=== PATIENT | male | born 1965 | race Caucasian/White ===

== ENCOUNTER 2020-07-02 18:34 | Outpatient (CLI) | payer BC ==
[~2020-07-02 18:34] MED LIST: LOSA1TAB15 PO
[2020-07-02 18:59] LABS: BASOPHILS # (AUTO) 0.1 K/uL (0.0-0.2); BASOPHILS % (AUTO) 0.7 % (0.0-2.0); EOSINOPHILS # (AUTO) 0.4 K/uL (0.0-0.4); EOSINOPHILS % (AUTO) 4.3 % (0.0-4.0); HEMATOCRIT 40.6 % (36-54); HEMOGLOBIN 13.5 g/dL (14.0-18.0); LYMPHOCYTES # (AUTO) 3.6 K/uL (1.0-5.5); MEAN CORPUSCULAR HEMOGLOBIN 30 pg (27-31); MEAN CORPUSCULAR HGB CONC 33 % (32-36); MEAN CORPUSCULAR VOLUME 90 fL (79.0-98.0); MONOCYTES # (AUTO) 0.6 K/uL (0.0-1.0); MONOCYTES % (AUTO) 6.7 % (1.7-9.3); NEUTROPHILS % (AUTO) 46.3 % (40.0-70.0); PLATELET COUNT (AUTO) 89 K/uL (130-430); RED CELL DISTRIBUTION WIDTH 13.5 % (9.0-15.0); WHITE BLOOD COUNT (AUTO) 8.6 K/uL (4.8-10.8)
[2020-07-02 19:14] LABS: ALBUMIN 3.8 g/dL (3.4-4.8); CALCIUM 8.9 mg/dL (8.4-11.0); CREATININE 1.22 mg/dL (0.55-1.30); TOTAL BILIRUBIN 0.5 mg/dL (0.0-1.0)
== END 2020-07-02 21:05 | disposition home or self-care (01) ==
LOC: SLB 18:34
PROVIDERS: ATTEND Internal Medicine Infectious Disease
DX: L08.9 Local infection of the skin and subcutaneous tissue, unspecified (principal)
CPT/HCPCS: 36415; 80053; 85025

== ENCOUNTER 2021-02-10 10:06 | Inpatient (IN) | payer BC, SELFPAY ==
[~2021-02-10] VITALS: Ht 170.2 cm; Wt 83.5 kg
[2021-02-10 10:16] VITALS: BP_SYST 191
[2021-02-10] MEDS ORDERED: NACL 0.9% 1,000 ML IV ONE (10:30)
[2021-02-10] MEDS ORDERED: MORPHINE 4 MG INJ. 4 MG/ML VIAL IVP ONE ×2 (10:30→11:45)
[2021-02-10] MEDS ORDERED: KETOROLAC TROMETHAMINE 30 MG VIAL IVP ONE ×2 (10:30→15:30)
[2021-02-10 10:39] LABS: BASOPHILS # (AUTO) 0.1 K/uL (0.0-0.2); BASOPHILS % (AUTO) 0.9 % (0.0-2.0); EOSINOPHILS % (AUTO) 0.2 % (0.0-4.0); HEMOGLOBIN 14.4 g/dL (14.0-18.0); LYMPHOCYTES # (AUTO) 4.4 K/uL (1.0-5.5); LYMPHOCYTES % (AUTO) 39.1 % (20.5-51.5); MEAN CORPUSCULAR HEMOGLOBIN 30 pg (27-31); MEAN CORPUSCULAR HGB CONC 34 % (32-36); MEAN CORPUSCULAR VOLUME 88 fL (79.0-98.0); MONOCYTES # (AUTO) 0.8 K/uL (0.0-1.0); MONOCYTES % (AUTO) 7.2 % (1.7-9.3); NEUTROPHILS % (AUTO) 52.6 % (40.0-70.0); PLATELET COUNT (AUTO) 178 K/uL (130-430); RED BLOOD CELL COUNT(AUTO) 4.79 MIL/uL (4.2-6.2); RED CELL DISTRIBUTION WIDTH 13.3 % (9.0-15.0); WHITE BLOOD COUNT (AUTO) 11.4 K/uL (4.8-10.8)
[2021-02-10] MEDS ORDERED: METO25TA3 PO (10:46)
[2021-02-10] MEDS ORDERED: LIP40 PO (10:46)
[2021-02-10] MEDS ORDERED: ASA81 PO (10:46)
[2021-02-10] MEDS ORDERED: PRAS10TA6 PO (10:46)
[2021-02-10 11:02] LABS: CALCIUM 8.6 mg/dL (8.4-11.0); CREATININE 1.04 mg/dL (0.55-1.30); POTASSIUM 3.5 mmol/L (3.5-5.1)
[2021-02-10 11:08] LABS: ALBUMIN 3.5 g/dL (3.4-4.8); TOTAL BILIRUBIN 0.5 mg/dL (0.0-1.0)
[2021-02-10] MEDS ORDERED: GADOBENATE DIMEGLUMINE 529 MG/ML, 15 ML VIAL IV ONE (14:39)
[2021-02-10] MEDS ORDERED: methylPREDNISolone SOD SUCC 500 MG/VIAL (Solu-MEDROL) IV ONE (15:30)
[2021-02-10] MEDS ORDERED: NON-FORMULARY MEDICATION (Prasugrel Hydrochloride (Effient) 10 MG) PO SCH (17:15)
[2021-02-10] MEDS ORDERED: ONDANSETRON HCL 4 MG/2 ML VIAL IVP PRN (17:15)
[2021-02-10] MEDS ORDERED: ACETAMINOPHEN 325 MG TABLET PO PRN (17:15)
[2021-02-10] MEDS ORDERED: MORPHINE 2 MG/ML INJ. SYRINGE IVP PRN (17:15)
[2021-02-10] MEDS ORDERED: METOCLOPRAMIDE HCL 10 MG/2 ML VIAL IVP PRN (17:15)
[2021-02-10] MEDS ORDERED: MORPHINE 4 MG INJ. 4 MG/ML VIAL IVP PRN (17:15)
[2021-02-10] MEDS ORDERED: cloNIDine HCL 0.1 MG TABLET PO PRN (19:15)
[2021-02-10] MEDS ORDERED: ENALAPRILAT DIHYDRATE 1.25 MG/ML VIAL IVP PRN (19:15)
[2021-02-10] MEDS ORDERED: hydrALAZINE HCL 20 MG/ML VIAL IVP PRN (19:15)
[2021-02-10 21:20] VITALS: BP_SYST 130
[2021-02-10] MEDS: HYDROmorphone 1 INJ. 1 MG/ML CARTRIDGE IVP PRN (22:09)
[2021-02-11] MEDS: HYDROmorphone 1 INJ. 1 MG/ML CARTRIDGE IVP PRN ×4 (01:54→23:40)
[2021-02-11 04:00] VITALS: BP_SYST 147
[2021-02-11] MEDS: ASPIRIN 81 MG TAB.CHEW PO SCH (08:16)
[2021-02-11] MEDS: ATORVASTATIN 20 MG TABLET PO SCH (08:17)
[2021-02-11] MEDS: METOPROLOL SUCCINATE 25 MG TAB.SR.24H (TOPROL XL) PO SCH (08:17)
[2021-02-11] MEDS: PRASUGREL 10 MG PO SCH (11:15)
[2021-02-11 11:30] VITALS: BP_SYST 136
[2021-02-11] MEDS: HYDROmorphone 2 MG/ML VIAL IVP PRN ×3 (11:49→19:51)
[2021-02-11 15:15] VITALS: BP_SYST 142
[2021-02-11 19:58] VITALS: BP_SYST 149
[2021-02-12 00:59] VITALS: BP_SYST 149
[2021-02-12] MEDS: HYDROmorphone 2 MG/ML VIAL IVP PRN ×5 (04:00→20:37)
[2021-02-12] MEDS: ATORVASTATIN 20 MG TABLET PO SCH (08:06)
[2021-02-12] MEDS: METOPROLOL SUCCINATE 25 MG TAB.SR.24H (TOPROL XL) PO SCH (08:06)
[2021-02-12] MEDS: PRASUGREL 10 MG PO SCH (08:07)
[2021-02-12] MEDS: ASPIRIN 81 MG TAB.CHEW PO SCH (08:07)
[2021-02-12 12:03] VITALS: BP_SYST 143
[2021-02-12 16:02] VITALS: BP_SYST 132
[2021-02-12 20:00] VITALS: BP_SYST 138
[2021-02-13 00:05] VITALS: BP_SYST 119
[2021-02-13] MEDS: HYDROmorphone 2 MG/ML VIAL IVP PRN ×6 (00:48→21:35)
[2021-02-13 08:31] VITALS: BP_SYST 143
[2021-02-13] MEDS: METOPROLOL SUCCINATE 25 MG TAB.SR.24H (TOPROL XL) PO SCH (09:17)
[2021-02-13] MEDS: ASPIRIN 81 MG TAB.CHEW PO SCH (09:19)
[2021-02-13] MEDS: PRASUGREL 10 MG PO SCH (09:26)
[2021-02-13] MEDS: ATORVASTATIN 20 MG TABLET PO SCH (09:55)
[2021-02-13 12:06] VITALS: BP_SYST 159
[2021-02-13 16:04] VITALS: BP_SYST 145
[2021-02-13 20:00] VITALS: BP_SYST 146
[2021-02-13] MEDS ORDERED: DEXAMETHASONE SOD PHOSPHATE 10 MG/ML VIAL IVP ONE (20:00)
[2021-02-13] MEDS ORDERED: NALOXONE HCL 0.4 MG/ML AMP (NARCAN) IVP PRN (20:00)
[2021-02-13] MEDS ORDERED: HYDROcodone/ACETAMIN 10-325 MG TAB PO PRN (20:00)
[2021-02-13] MEDS: methocarbamoL 500 MG TABLET PO SCH (21:32)
[2021-02-13 23:59] VITALS: BP_SYST 119
[2021-02-14] MEDS: DEXAMETHASONE SOD PHOSPHATE 4 MG/ML VIAL IVP SCH ×2 (01:01→05:24)
[2021-02-14] MEDS: HYDROmorphone 2 MG/ML VIAL IVP PRN ×3 (01:07→09:43)
[2021-02-14 08:32] VITALS: BP_SYST 128
[2021-02-14 08:35] VITALS: BP_SYST 128
[2021-02-14] MEDS: methocarbamoL 500 MG TABLET PO SCH (08:37)
[2021-02-14] MEDS: PRASUGREL 10 MG PO SCH (08:38)
[2021-02-14] MEDS: ATORVASTATIN 20 MG TABLET PO SCH (08:38)
[2021-02-14] MEDS: METOPROLOL SUCCINATE 25 MG TAB.SR.24H (TOPROL XL) PO SCH (08:38)
[2021-02-14] MEDS: ASPIRIN 81 MG TAB.CHEW PO SCH (08:39)
== END 2021-02-14 10:55 | disposition short-term general hospital (02) | DRG 552 ==
LOC: SED 10:06 → SMU 16:42
PROVIDERS: ADMIT Internal Medicine Hospice and Palliative Medicine; ATTEND Internal Medicine Hospice and Palliative Medicine
DX: M51.16 Intervertebral disc disorders with radiculopathy, lumbar region (principal); E78.5 Hyperlipidemia, unspecified; I10 Essential (primary) hypertension; I25.10 Atherosclerotic heart disease of native coronary artery without angina pectoris; Z20.822 Contact with and (suspected) exposure to COVID-19; E78.00 Pure hypercholesterolemia, unspecified; Z79.82 Long term (current) use of aspirin; Z79.899 Other long term (current) drug therapy; I25.2 Old myocardial infarction; Z98.1 Arthrodesis status
CPT/HCPCS: 36415; 72158; 80053; 85025; 96361; 96374; 96375; 96376; 97116-GP; 99285; A9577; J1100; J1170; J1885; J2270; U0003